=== PATIENT | male | born 1950 | race African-American/Black ===

== ENCOUNTER → 2016-09-05 | Outpatient (CLI) | payer MEDICARE, BC | LOC: RAD 10:38 | PROVIDERS: ATTEND Urology | DX: R31.21 Asymptomatic microscopic hematuria (principal) | CPT/HCPCS: 76770 ==

== ENCOUNTER → 2017-01-22 | Outpatient (CLI) | payer MEDICARE, BC ==
--- NOTE | 2017-01-22 14:20 | RADIOLOGY REPORT (SQ) ---
EXAM DESCRIPTION: CT CHEST WITHOUT COMPLETED DATE/TIME: 01/22/2017 1:01 pm REASON FOR STUDY: J84.10 PULMONARY FIBROSIS J84.10 PULMONARY FIBROSIS, UNSPECIFIED COMPARISON: 03/12/2014 TECHNIQUE: CT scan performed of the chest without intravenous contrast. Images reviewed with lung, soft tissue and bone windows. Reconstructed coronal and sagittal MPR images reviewed. All images st ored on PACS. All CT scanners at this facility use dose modulation, iterative reconstruction, and/or weight based d osing when appropriate to reduce radiation dose to as low as reasonably achievable (ALARA). [facility]: Dose Right [facility]: CareDose [facility]: Dose Right [facility]: Teradose 4D [facility]: Smart [employer] RADIATION DOSE: Up-to-date CT equipment and radiation dose reduction techniques were employed. CTDIv ol: 17.8 mGy. DLP: 613 mGy-cm. mGy. LIMITATIONS: No technical limitations. FINDINGS: LUNGS AND PLEURA: Paraseptal emphysematous changes in the left apex. Stable areas of harsh pheral linear scarring. Bronchiectasis in the lower lobes. No honeycombing. Calcified granuloma ri ght lower lobe. No suspicious nodules. No effusions. HILAR AND MEDIASTINAL STRUCTURES: No identified masses or abnormal nodes. No obvious aneurysm. HEART AND VASCULAR STRUCTURES: No aneurysm. No pericardial effusion. UPPER ABDOMEN: No significant findings. Limited exam. THYROID AND OTHER SOFT TISSUES: No masses. No adenopathy. BONES: No significant finding. HARDWARE: None in the chest. OTHER: No other significant findings. IMPRESSION: Chronic interstitial lung disease and bronchiectasis. No fibrosis. TECHNICAL DOCUMENTATION: JOB ID: [id number] Quality ID # [id number]: Final reports with documentation of one or more dose reduction techniques (e.g., Au tomated exposure control, adjustment of the mA and/or kV according to patient size, use of iterative reconstruction technique) 2010 [employer]- All Rights Reserved
== END ==
LOC: OD 11:51
PROVIDERS: ATTEND Internal Medicine Pulmonary Disease
DX: J84.10 Pulmonary fibrosis, unspecified (principal); D68.0 Von Willebrand disease
CPT/HCPCS: 36415; 71250; 82164; 82310; 82340

== ENCOUNTER 2017-06-08 03:49 | Observation (INO) | payer MEDICARE, BC ==
[2017-06-08] MEDS ORDERED: ASPIRIN 81 MG TABLET, CHEWABLE PO ONE (03:51)
[2017-06-08 04:43] LABS: ABSOLUTE EOSINOPHILS # (AUTO) 0.1 10^3/uL (0.0-0.6); ABSOLUTE LYMPHOCYTES (AUTO) 2.6 10^3/uL (0.5-4.7); ABSOLUTE MONOCYTES (AUTO) 0.3 10^3/uL (0.1-1.4); EOSINOPHILS % (AUTO) 1.6 % (0-6); HEMATOCRIT 44.8 % (37.9-51.0); HEMOGLOBIN 14.9 g/dL (13.5-17.0); HGB HCT DIFFERENCE -0.1; LYMPHOCYTES % (AUTO) 51.7 % (13-45); MEAN CORPUSCULAR HEMOGLOBIN 27.1 pg (27.0-33.4); MEAN CORPUSCULAR HGB CONC 33.2 g/dL (32.0-36.0); MEAN CORPUSCULAR VOLUME 82 fl (80-97); MONOCYTES % (AUTO) 6.7 % (3-13); RED BLOOD COUNT 5.49 10^6/uL (4.35-5.55); RED CELL DISTRIBUTION WIDTH 16.5 % (11.5-14.0); WHITE BLOOD COUNT 5.1 10^3/uL (4.0-10.5)
--- NOTE | 2017-06-08 04:45 | EKG REPORT ---
SEVERITY:- NORMAL ECG - SINUS RHYTHM : Confirmed by: Elliot Worley 08-Jun-2017 04:16:06
[2017-06-08 04:53] LABS: PROTHROMBIN TIME 23.6 SEC (11.4-15.4)
[2017-06-08 04:54] LABS: PARTIAL THROMBOPLASTIN TIME 34.6 SEC (23.5-35.8)
[2017-06-08 05:04] LABS: ALANINE AMINOTRANSFERASE 28 U/L (21-72); ALBUMIN 4.3 g/dL (3.5-5.0); ALKALINE PHOSPHATASE 44 U/L (38-126); ANION GAP 10 (5-19); ASPARTATE AMINO TRANSFERASE 25 U/L (17-59); BILIRUBIN,DIRECT 0.4 mg/dL (0.0-0.4); BILIRUBIN,TOTAL 0.7 mg/dL (0.2-1.3); BLOOD UREA NITROGEN 16 mg/dL (7-20); CALCIUM 9.2 mg/dL (8.4-10.2); CARBON DIOXIDE 33 mmol/L (22-30); CHLORIDE 102 mmol/L (98-107); CREATINE KINASE 138 U/L (55-170); CREATININE RESULT 0.97 mg/dL (0.52-1.25); GLUCOSE 90 mg/dL (75-110); MAGNESIUM 1.9 mg/dL (1.6-2.3); POTASSIUM 3.6 mmol/L (3.6-5.0); SODIUM 144.8 mmol/L (137-145); TOTAL PROTEIN 7.3 g/dL (6.3-8.2)
[2017-06-08 05:15] LABS: CREATINE KINASE MB 2.53 ng/mL (<4.55)
--- NOTE | 2017-06-08 05:16 | RADIOLOGY REPORT (SQ) ---
EXAM DESCRIPTION: CHEST SINGLE VIEW CLINICAL HISTORY: 66 years, Male, chest pain COMPARISON: 03/12/2014. NUMBER OF VIEWS: 1. TECHNIQUE: Frontal LIMITATIONS: None. FINDINGS: Moderate lung volume, small stable atelectasis or scar of the right mid lung field compared with exam from March 2014, normal cardiac silhouette size, and intact bony thorax. IMPRESSION: No acute cardiopulmonary findings. 2011 [employer] [facility] [employer]- All Rights Reserved
[2017-06-08 05:24] LABS: TROPONIN I < 0.012 ng/mL
--- NOTE | 2017-06-08 05:34 | ER Document Report ---
ED General - General Chief Complaint: Chest Pain Stated Complaint: CHEST PAIN Time Seen by Provider: 06/08/17 03:52 TRAVEL OUTSIDE OF THE [place] IN LAST 30 DAYS: No - HPI Patient complains to provider of: Chest pain Notes: Patient coming in with chest pain chest tightness and of the chest woke up from his sleep approximate 45 minutes prior to arrival to the ER. Patient states does have a history of pain like this before patient states he has had a stress test greater than a year ago states otherwise negative no stents no history of [place]. Patient does have a history of hypertension. Patient also has a history of atrial fibrillation and is on Coumadin. Denies any diaphoresis shortness of breath denies any trauma or recent travel. Patient resting comfortably upon my evaluation states chest pain is mostly resolved at this time. - Related Data Allergies/Adverse Reactions: No Known Allergies Allergy (Verified 03/30/16 11:08) Past Medical History - Social History Smoking Status: Never Smoker Chew tobacco use (# tins/day): No Frequency of alcohol use: None Drug Abuse: None Family History: CAD, DM, Hyperlipidemia, Hypertension Patient has suicidal ideation: No Patient has homicidal ideation: No - Past Medical History Cardiac Medical History: Reports: Hx Atrial Fibrillation, Hx Hypercholesterolemia, Hx Hypertension, Hx Peripheral Vascular Disease Pulmonary Medical History: Reports: Hx Asthma Denies: Hx Tuberculosis Renal/ Medical History: Denies: Hx Peritoneal Dialysis GI Medical History: Reports: Hx Gastroesophageal Reflux Disease Musculoskeltal Medical History: Reports Hx Arthritis Past Surgical History: Reports: Hx Vascular Surgery. Denies: Hx Pacemaker - Immunizations Immunizations up to date: Yes Hx Diphtheria, Pertussis, Tetanus Vaccination: Yes Hx Pneumococcal Vaccination: 04/01/11 Review of Systems - Review of Systems Constitutional: No symptoms reported EENT: No symptoms reported Cardiovascular: Chest pain Respiratory: No symptoms reported Gastrointestinal: No symptoms reported Genitourinary: No symptoms reported Male Genitourinary: No symptoms reported Musculoskeletal: No symptoms reported Skin: No symptoms reported Hematologic/Lymphatic: No symptoms reported Neurological/Psychological: No symptoms reported -: Yes All other systems reviewed and negative Physical Exam - Vital signs Vitals: Pulse Ox 98 06/08/17 03:51 Interpretation: Normal - General General appearance: Appears well, Alert - HEENT Head: Normocephalic, Atraumatic Eyes: Normal Pupils: PERRL - Respiratory Respiratory status: No respiratory distress Chest status: Nontender Breath sounds: Normal Chest palpation: Normal - Cardiovascular Rhythm: Regular Heart sounds: Normal auscultation Murmur: No - Abdominal Inspection: Normal Distension: No distension Bowel sounds: Normal Tenderness: Nontender Organomegaly: No organomegaly - Back Back: Normal, Nontender - Extremities General upper extremity: Normal inspection, Nontender, Normal color, Normal ROM , Normal temperature General lower extremity: Normal inspection, Nontender, Normal color, Normal ROM , Normal temperature, Normal weight bearing. No: Aris's sign - Neurological Neuro grossly intact: Yes Cognition: Normal Orientation: AAOx4 [place] Coma Scale Eye Opening: Spontaneous [place] Coma Scale Verbal: Oriented [place] Coma Scale Motor: Obeys Commands [place] Coma Scale Total: 15 Speech: Normal Motor strength normal: LUE, RUE, LLE, RLE Sensory: Normal - Psychological Associated symptoms: Normal affect, Normal mood - Skin Skin Temperature: Warm Skin Moisture: Dry Skin Color: Normal Course - Re-evaluation Re-evalutation: 06/08/17 06:20 EKG troponin negative chest x-ray is also negative. Discussed with PCP will admit the patient for further cardiac evaluation - Vital Signs Vital signs: Temp Pulse Resp BP Pulse Ox 98.3 F 67 20 125/81 96 06/08/17 04:03 06/08/17 04:03 06/08/17 05:01 06/08/17 05:01 06/08/17 05:01 - Laboratory Result Diagrams: 06/08/17 04:34 06/08/17 04:34 Laboratory results interpreted by me: 06/08/17 06/08/17 06/08/17 04:34 04:34 04:34 RDW 16.5 H Seg Neutrophils % 39.0 L Lymphocytes % 51.7 H PT 23.6 H Carbon Dioxide 33 H Discharge - Discharge Clinical Impression: Chest pain, rule out acute myocardial infarction Condition: Good Disposition: ADMITTED OBSERVATION Admitting Provider: Yue Unit Admitted: Telemetry Referrals: CRISTA ORDONEZ MD [Primary Care Provider] - Follow up as needed
--- NOTE | 2017-06-08 16:30 | PDOC H&P ---
History of Present Illness Admission Date/PCP: 06/08/17 05:40 CRISTA ORDONEZ Patient complains of: Chest pain History of Present Illness: ADRI RICHARDSON is a 66 year old male known to my practice who presented to ED with chest pain that started about 45 minutes prior to arrival. Patient reported that he was recently started on CPAP machine for obstructive sleep apnea. he woke up from sleep due to onset of his chest pain. Patient localized pain to left side of his chest without any associated radiation to left upper extremity, palpitation, shortness of breath, nausea or diaphoresis. he has history of Atrial fibrillation and have been compliant with Coumadin therapy. Patient reported compliance with CPAP usage. Spouse reported that she noticed his abdomen have been bigger than usual since he started using the CPAP machine. Patient has history of GERD among his morbidities. His initial evaluation in the ED was remarkable for atrial fibrillation with rapid ventricular rate. He reported recent stress test about 16 months ago that was unrevealing with regard to ischemic issue. His morbidities include chronic atrial fibrillation, Hypertension, Hyperlipidemia, Peripheral Vascular Disease, Obstructive sleep apnea, Asthma, GERD, and Osteoarthritis. He reported significant cardiovascular disease including Hypertension, CAD, DM Type 2, and Hyperlipidemia. Past Medical History Cardiac Medical History: Reports: Atrial Fibrillation, Hyperlipidema, Hypertension, Peripheral Vascular Disease Pulmonary Medical History: Reports: Asthma Denies: Tuberculosis GI Medical History: Reports: Gastroesophageal Reflux Disease Musculoskeltal Medical History: Reports: Arthritis Past Surgical History Past Surgical History: Reports: Vascular Surgery Denies: Pacemaker Social History Smoking Status: Former Smoker Frequency of Alcohol Use: None Hx Recreational Drug Use: No Hx Prescription Drug Abuse: No Family History Family History: CAD, DM, Hyperlipidemia, Hypertension Parental Family History Reviewed: Yes Children Family History Reviewed: Yes Sibling(s) Family History Reviewed.: Yes Medication/Allergy Home Medications: Warfarin Sodium 10 mg PO SUMOTUTHFRSA@99903/12/14 Warfarin Sodium 15 mg PO WE@99903/12/14 Losartan Potassium 50 mg PO DAILY #30 tablet 03/13/14 Metoprolol Tartrate [Lopressor 25 mg Tablet] 25 mg PO Q12 #60 tablet 03/13/14 Duloxetine HCl [Cymbalta 20 Mg Capsule.Dr] 40 mg PO QHS 06/08/17 Hydrochlorothiazide [Hydrodiuril 12.5 mg Capsule] 12.5 mg PO QAM 06/08/17 Pantoprazole Sodium [Protonix] 20 mg PO Q6AM 06/08/17 Allergies/Adverse Reactions: No Known Allergies Allergy (Verified 06/08/17 06:23) Review of Systems Constitutional: ABSENT: chills, fever(s), headache(s), weight gain, weight loss Eyes: ABSENT: visual disturbances Ears: ABSENT: hearing changes Nose, Mouth, and Throat: ABSENT: headache(s), mouth pain, sore throat, vertigo Cardiovascular: PRESENT: chest pain. ABSENT: as per HPI, dyspnea on exertion, edema, orthropnea, palpitations, other Respiratory: ABSENT: cough, hemoptysis Gastrointestinal: ABSENT: abdominal pain, constipation, diarrhea, hematemesis, hematochezia, nausea, vomiting Genitourinary: ABSENT: dysuria, hematuria Musculoskeletal: ABSENT: joint swelling Integumentary: ABSENT: rash, wounds Neurological: ABSENT: abnormal gait, abnormal speech, confusion, dizziness, focal weakness, syncope Psychiatric: ABSENT: anxiety, depression, homidical ideation, suicidal ideation Endocrine: ABSENT: cold intolerance, heat intolerance, menstrual abnormalities, polydipsia, polyuria Hematologic/Lymphatic: ABSENT: easy bleeding, easy bruising, lymphadenopathy Allergic/Immunologic: ABSENT: seasonal rhinorrhea Physical Exam Vital Signs: Temp Pulse Resp BP Pulse Ox 97.7 F 76 18 127/74 H 97 06/08/17 15:51 06/08/17 15:51 06/08/17 15:51 06/08/17 15:51 06/08/17 15:51 Intake & Output 06/07/17 06/08/17 06/09/17 06:59 06:59 06:59 Weight 117.9 kg General appearance: PRESENT: no acute distress, cooperative, obese Head exam: PRESENT: atraumatic, normocephalic Eye exam: PRESENT: conjunctiva pink, EOMI, PERRLA. ABSENT: scleral icterus Ear exam: PRESENT: normal external ear exam Mouth exam: PRESENT: moist, tongue midline Throat exam: ABSENT: post pharyngeal erythema, tonsillar erythema, tonsillar exudate, tonsillogmegaly Neck exam: PRESENT: full ROM. ABSENT: carotid bruit, JVD, lymphadenopathy, thyromegaly Respiratory exam: PRESENT: clear to auscultation jeffery Cardiovascular exam: PRESENT: RRR, +S1, +S2. ABSENT: diastolic murmur, rubs, systolic murmur Pulses: PRESENT: normal dorsalis pedis pul, +2 pedal pulses bilateral Vascular exam: PRESENT: normal capillary refill. ABSENT: pallor GI/Abdominal exam: PRESENT: normal bowel sounds, soft. ABSENT: distended, guarding, mass, organolmegaly, rebound, tenderness Rectal exam: PRESENT: deferred Extremities exam: ABSENT: pedal edema - support Musculoskeletal exam: PRESENT: ambulatory, normal inspection. ABSENT: tenderness Neurological exam: PRESENT: alert, awake, oriented to person, oriented to place , oriented to time, oriented to situation, CN II-XII grossly intact. ABSENT: motor sensory deficit Psychiatric exam: PRESENT: appropriate affect, normal mood. ABSENT: homicidal ideation, suicidal ideation Skin exam: PRESENT: dry, intact, warm. ABSENT: cyanosis, rash Results Laboratory Results: I reviewed hos laboratory results on [employer] and form significant part of my medical decision making. 06/08/17 06/08/17 07:58 14:52 Troponin I 0.032 0.041 Impressions: Chest X-Ray 06/08/17 03:51 IMPRESSION: No acute cardiopulmonary findings. 2010 [employer]- All Rights Reserved Assessment & Plan - Diagnosis (1) Chest pain, rule out acute myocardial infarction Is this a current diagnosis for this admission?: Yes Plan: See attending physician orders. (2) Chronic atrial fibrillation with rapid ventricular response Is this a current diagnosis for this admission?: Yes Plan: See attending physician orders. (3) Obstructive sleep apnea on CPAP Is this a current diagnosis for this admission?: Yes Plan: See attending physician orders. (4) GERD (gastroesophageal reflux disease) Qualifiers: Esophagitis presence: without esophagitis Qualified Code(s): K21.9 - Gastro -esophageal reflux disease without esophagitis Is this a current diagnosis for this admission?: Yes Plan: See attending physician orders. (5) HTN (hypertension) Qualifiers: Hypertension type: essential hypertension Qualified Code(s): I10 - Essential (primary) hypertension Is this a current diagnosis for this admission?: Yes Plan: See attending physician orders. (6) HLD (hyperlipidemia) Qualifiers: Hyperlipidemia type: pure hypercholesterolemia Qualified Code(s): E78.00 - Pure hypercholesterolemia, unspecified; E78.0 - Pure hypercholesterolemia Is this a current diagnosis for this admission?: Yes Plan: See attending physician orders. (7) DVT (deep venous thrombosis) Qualifiers: DVT location: lower extremity Chronicity: chronic Laterality: unspecified laterality Is this a current diagnosis for this admission?: Yes Plan: See attending physician orders. - Time Time Spent: 50 to 70 Minutes Medications reviewed and adjusted accordingly: Yes Anticipated discharge: Home Within: within 24 hours - Plan Summary Plan Summary: See attending physician orders.
[2017-06-08] MEDS ORDERED: NORMAL SALINE 1000 ML 1,000 ML IV PRN (16:31)
[2017-06-08 17:23] LABS: PROTHROMBIN TIME 24.2 SEC (11.4-15.4)
[2017-06-08] MEDS ORDERED: LANSOPRAZOLE 30 MG TAB.RAP.DR PO ONE (17:30)
[2017-06-08] MEDS ORDERED: WARFARIN SODIUM 5 MG TABLET PO SCH (22:00)
[2017-06-08] MEDS ORDERED: DULOXETINE HCL 20 MG CAPSULE.DR PO SCH (22:00)
[2017-06-08] MEDS: METOPROLOL TARTRATE 25 MG TABLET PO SCH (22:21)
[2017-06-09 05:31] LABS: ABSOLUTE BASOPHILS # (AUTO) 0.1 10^3/uL (0.0-0.2); ABSOLUTE EOSINOPHILS # (AUTO) 0.1 10^3/uL (0.0-0.6); ABSOLUTE LYMPHOCYTES (AUTO) 2.3 10^3/uL (0.5-4.7); ABSOLUTE MONOCYTES (AUTO) 0.3 10^3/uL (0.1-1.4); ABSOLUTE NEUT (AUTO) 1.8 10^3/uL (1.7-8.2); BASOPHILS % (AUTO) 1.3 % (0-2); EOSINOPHILS % (AUTO) 2.6 % (0-6); HEMATOCRIT 42.6 % (37.9-51.0); HEMOGLOBIN 14.4 g/dL (13.5-17.0); HGB HCT DIFFERENCE 0.6; LYMPHOCYTES % (AUTO) 49.8 % (13-45); MEAN CORPUSCULAR HEMOGLOBIN 27.7 pg (27.0-33.4); MEAN CORPUSCULAR HGB CONC 33.9 g/dL (32.0-36.0); MEAN CORPUSCULAR VOLUME 82 fl (80-97); MONOCYTES % (AUTO) 7.1 % (3-13); RED BLOOD COUNT 5.21 10^6/uL (4.35-5.55); RED CELL DISTRIBUTION WIDTH 16.6 % (11.5-14.0); SEGMENTED NEUTROPHILS % (AUTO) 39.2 % (42-78); WHITE BLOOD COUNT 4.5 10^3/uL (4.0-10.5)
[2017-06-09 05:36] LABS: PROTHROMBIN TIME 24.6 SEC (11.4-15.4)
[2017-06-09 05:54] LABS: ANION GAP 7 (5-19); BLOOD UREA NITROGEN 13 mg/dL (7-20); CALCIUM 8.9 mg/dL (8.4-10.2); CARBON DIOXIDE 30 mmol/L (22-30); CHLORIDE 104 mmol/L (98-107); CREATINE KINASE 111 U/L (55-170); CREATININE RESULT 0.78 mg/dL (0.52-1.25); GLUCOSE 92 mg/dL (75-110); SODIUM 141.4 mmol/L (137-145)
[2017-06-09] MEDS ORDERED: LANSOPRAZOLE 30 MG TAB.RAP.DR PO SCH (06:00)
[2017-06-09 06:04] LABS: CREATINE KINASE MB 1.72 ng/mL (<4.55)
[2017-06-09 06:05] LABS: TROPONIN I < 0.012 ng/mL
--- NOTE | 2017-06-09 07:58 | EKG REPORT ---
SEVERITY:- NORMAL ECG - SINUS RHYTHM : Confirmed by: Elliot Worley 09-Jun-2017 07:57:26
[2017-06-09] MEDS ORDERED: HYDROCHLOROTHIAZIDE 12.5 MG CAPSULE PO SCH (08:00)
[2017-06-09 08:21] VITALS: BP 134/76
[2017-06-09] MEDS: METOPROLOL TARTRATE 25 MG TABLET PO SCH (09:12)
[2017-06-09] MEDS ORDERED: WARFARIN SODIUM 10 MG PO SCH (10:00)
[2017-06-09] MEDS ORDERED: LOSARTAN POTASSIUM 50 MG TABLET PO SCH (10:00)
[2017-06-09] MEDS ORDERED: (PENDING PHARMACY ID) (Losartan Potassium [Losartan Potassium] 50 MG) PO SCH (10:00)
--- NOTE | 2017-06-09 10:59 | PDOC DISCHARGE SUMMARY ---
General - Admit/Disc Date/PCP Admission Date/Primary Care Provider: 06/08/17 05:40 CRISTA MERY Discharge Date: 06/09/17 - Discharge Diagnosis (1) Chest pain, rule out acute myocardial infarction Is this a current diagnosis for this admission?: Yes (2) Chronic atrial fibrillation with rapid ventricular response Is this a current diagnosis for this admission?: Yes (3) Obstructive sleep apnea on CPAP Is this a current diagnosis for this admission?: Yes (4) GERD (gastroesophageal reflux disease) Is this a current diagnosis for this admission?: Yes (5) HTN (hypertension) Is this a current diagnosis for this admission?: Yes (6) HLD (hyperlipidemia) Is this a current diagnosis for this admission?: Yes (7) DVT (deep venous thrombosis) Is this a current diagnosis for this admission?: Yes - Additional Information Home Medications: Warfarin Sodium 10 mg PO SUMOTUTHFRSA@99903/12/14 Warfarin Sodium 15 mg PO WE@99903/12/14 Losartan Potassium 50 mg PO DAILY #30 tablet 03/13/14 Metoprolol Tartrate [Lopressor 25 mg Tablet] 25 mg PO Q12 #60 tablet 03/13/14 Duloxetine HCl [Cymbalta 20 Mg Capsule.Dr] 40 mg PO QHS 06/08/17 Hydrochlorothiazide [Hydrodiuril 12.5 mg Capsule] 12.5 mg PO QAM 06/08/17 Pantoprazole Sodium [Protonix] 20 mg PO Q6AM 06/08/17 History of Present Illness History of Present Illness: ADRI RICHARDSON is a 66 year old male known to my practice who presented to ED with chest pain that started about 45 minutes prior to arrival. Patient reported that he was recently started on CPAP machine for obstructive sleep apnea. he woke up from sleep due to onset of his chest pain. Patient localized pain to left side of his chest without any associated radiation to left upper extremity, palpitation, shortness of breath, nausea or diaphoresis. he has history of Atrial fibrillation and have been compliant with Coumadin therapy. Patient reported compliance with CPAP usage. Spouse reported that she noticed his abdomen have been bigger than usual since he started using the CPAP machine. Patient has history of GERD among his morbidities. His initial evaluation in the ED was remarkable for atrial fibrillation with rapid ventricular rate. He reported recent stress test about 16 months ago that was unrevealing with regard to ischemic issue. His morbidities include chronic atrial fibrillation, Hypertension, Hyperlipidemia, Peripheral Vascular Disease, Obstructive sleep apnea, Asthma, GERD, and Osteoarthritis. He reported significant cardiovascular disease including Hypertension, CAD, DM Type 2, and Hyperlipidemia. Hospital Course Hospital Course: Patient chest pain resolved without any significant management intervention beyond administration of Aspirin and supplemental oxygen. His cardiac enzymes were within normal limits. He denied any chest pain or difficulty with breathing this morning. Patient was instructed to use CPAP machine mask appropriately and postural adjustment to reduce reflux recurrence. Physical Exam Vital Signs: Temp Pulse Resp BP Pulse Ox 98.6 F 73 16 134/76 H 96 06/09/17 08:00 06/09/17 08:00 06/09/17 08:00 06/09/17 08:00 06/09/17 08:00 Intake & Output 06/08/17 06/09/17 06/10/17 06:59 06:59 06:59 Intake Total 1708 Balance 1708 Weight 117.9 kg General appearance: PRESENT: no acute distress, obese Head exam: PRESENT: atraumatic, normocephalic Eye exam: PRESENT: conjunctiva pink, EOMI, PERRLA. ABSENT: scleral icterus Mouth exam: PRESENT: moist Respiratory exam: PRESENT: clear to auscultation jeffery Cardiovascular exam: PRESENT: RRR. ABSENT: diastolic murmur, rubs, systolic murmur GI/Abdominal exam: PRESENT: normal bowel sounds, soft. ABSENT: distended, guarding, mass, organolmegaly, rebound, tenderness Extremities exam: ABSENT: pedal edema Musculoskeletal exam: PRESENT: normal inspection Neurological exam: PRESENT: alert, awake, oriented to person, oriented to place , oriented to time, oriented to situation, CN II-XII grossly intact. ABSENT: motor sensory deficit Psychiatric exam: PRESENT: appropriate affect, normal mood. ABSENT: homicidal ideation, suicidal ideation Skin exam: PRESENT: dry, intact, warm. ABSENT: cyanosis, rash Results Laboratory Results: 06/09/17 05:10 06/09/17 05:10 06/09/17 06/09/17 05:10 05:10 WBC 4.5 RBC 5.21 Hgb 14.4 Hct 42.6 MCV 82 MCH 27.7 MCHC 33.9 RDW 16.6 H Plt Count 154 Seg Neutrophils % 39.2 L Lymphocytes % 49.8 H Monocytes % 7.1 Eosinophils % 2.6 Basophils % 1.3 Absolute Neutrophils 1.8 Absolute Lymphocytes 2.3 Absolute Monocytes 0.3 Absolute Eosinophils 0.1 Absolute Basophils 0.1 Sodium 141.4 Potassium 4.0 Chloride 104 Carbon Dioxide 30 Anion Gap 7 BUN 13 Creatinine 0.78 Est GFR ( Amer) > 60 Est GFR (Non-Af Amer) > 60 Glucose 92 Calcium 8.9 06/08/17 06/08/17 06/09/17 07:58 14:52 05:10 Creatine Kinase 111 CK-MB (CK-2) Troponin I 0.032 0.041 06/09/17 05:10 Creatine Kinase CK-MB (CK-2) 1.72 Troponin I < 0.012 Impressions: Chest X-Ray 06/08/17 03:51 IMPRESSION: No acute cardiopulmonary findings. 2010 [email or web address]- All Rights Reserved Qualifiers PATEINT BEING DISCHARGED WITH ANY OF THE FOLLOWING DIAGNOSIS?: No Plan Discharge Plan: Discharge home today. Keep prior office appointment for followup on 07/24/2017 at 11am.
[2017-06-13] MEDS ORDERED: WARFARIN SODIUM 15 MG PO SCH (10:00)
[2017-06-13] MEDS ORDERED: WARFARIN SODIUM 7.5 MG TABLET PO SCH (22:00)
== END 2017-06-09 12:10 | disposition home or self-care (01) ==
LOC: ER 03:49 → EH 05:40 → 4N 12:04
PROVIDERS: ADMIT Internal Medicine Geriatric Medicine; ATTEND Internal Medicine Geriatric Medicine
DX: R07.89 Other chest pain (principal); I48.2 Chronic atrial fibrillation; G47.33 Obstructive sleep apnea (adult) (pediatric); K21.9 Gastro-esophageal reflux disease without esophagitis; I10 Essential (primary) hypertension; E78.00 Pure hypercholesterolemia, unspecified; I82.509 Chronic embolism and thrombosis of unspecified deep veins of unspecified lower extremity; I25.10 Atherosclerotic heart disease of native coronary artery without angina pectoris; E11.51 Type 2 diabetes mellitus with diabetic peripheral angiopathy without gangrene; M19.90 Unspecified osteoarthritis, unspecified site; Z79.899 Other long term (current) drug therapy; Z79.01 Long term (current) use of anticoagulants; Z87.891 Personal history of nicotine dependence; Z82.49 Family history of ischemic heart disease and other diseases of the circulatory system
CPT/HCPCS: 93005 ×2; 99285; 36415 ×2; 82553 ×2; 82550 ×2; 83735; 85025 ×2; 85610 ×2; 85730; 80048; 80053; 84484 ×2; 71010; 93010 ×2; A9270 ×8; J7030; J3490

== ENCOUNTER → 2017-08-03 | Outpatient (CLI) | payer MEDICARE, BC ==
[2017-08-03 14:10] LABS: HEMATOCRIT 44.4 % (37.9-51.0); HEMOGLOBIN 14.8 g/dL (13.5-17.0); MEAN CORPUSCULAR HEMOGLOBIN 27.4 pg (27.0-33.4); MEAN CORPUSCULAR HGB CONC 33.3 g/dL (32.0-36.0); MEAN CORPUSCULAR VOLUME 82 fl (80-97); PLATELET COUNT 187 10^3/uL (150-450); RED CELL DISTRIBUTION WIDTH 16.2 % (11.5-14.0); WHITE BLOOD COUNT 5.4 10^3/uL (4.0-10.5)
[2017-08-03 14:27] LABS: ALANINE AMINOTRANSFERASE 25 U/L (21-72); ALBUMIN 4.8 g/dL (3.5-5.0); ALKALINE PHOSPHATASE 45 U/L (38-126); AMYLASE 93 U/L (30-110); ANION GAP 10 (5-19); ASPARTATE AMINO TRANSFERASE 22 U/L (17-59); BILIRUBIN,DIRECT 0.1 mg/dL (0.0-0.4); BILIRUBIN,TOTAL 0.5 mg/dL (0.2-1.3); BLOOD UREA NITROGEN 12 mg/dL (7-20); CALCIUM 9.6 mg/dL (8.4-10.2); CARBON DIOXIDE 32 mmol/L (22-30); CHLORIDE 103 mmol/L (98-107); GLUCOSE 80 mg/dL (75-110); LIPASE 125.9 U/L (23-300); POTASSIUM 4.4 mmol/L (3.6-5.0); SODIUM 145.3 mmol/L (137-145); TOTAL PROTEIN 7.5 g/dL (6.3-8.2)
== END ==
LOC: OD 13:17
PROVIDERS: ATTEND Physician Assistant Surgical
DX: R10.816 Epigastric abdominal tenderness (principal); R11.0 Nausea
CPT/HCPCS: 36415; 80053; 82150; 83690; 85027

== ENCOUNTER → 2017-09-03 | Outpatient (CLI) | payer MEDICARE, BC ==
--- NOTE | 2017-09-03 09:32 | RADIOLOGY REPORT (SQ) ---
EXAM DESCRIPTION: U/S ABDOMEN COMPLETE W/O DOP COMPLETED DATE/TIME: 09/03/2017 8:30 am REASON FOR STUDY: EPIGASTRIC PAIN (R10.13) R10.13 EPIGASTRIC PAIN R07.9 CHEST PAIN, UNSPECIFIED K4 4.9 DIAPHRAGMATIC HERNIA WITHOUT OBSTRUCTION OR GANGRENE COMPARISON: None. TECHNIQUE: Dynamic and static grayscale images acquired of the abdomen and recorded on PACS. Additio nal selected color Doppler and spectral images recorded. LIMITATIONS: Study limited due to acoustical interference from fat or from air in the bowel. FINDINGS: PANCREAS: Obscured. LIVER: Echotexture is coarse with increased echogenicity consistent with fatty infiltration. LIVER VASCULATURE: Normal directional flow of the main portal vein and hepatic veins. GALLBLADDER: No stones. Normal wall thickness. No pericholecystic fluid. ULTRASOUND-DETECTED HIGGINS'S SIGN: Negative. INTRAHEPATIC DUCTS AND COMMON DUCT: CBD and intrahepatic ducts normal caliber. No filling defects. INFERIOR VENA CAVA: Normal flow. AORTA: No aneurysm. RIGHT KIDNEY: Normal size. Normal echogenicity. No solid or suspicious masses. No hydronephros is. No calcifications. LEFT KIDNEY: Normal size. Normal echogenicity. No solid or suspicious masses. No hydronephrosi s. No calcifications. SPLEEN:Normal size. No solid masses. PERITONEAL AND PLEURAL SPACES: No ascites or effusions. OTHER: No other significant finding. IMPRESSION: Fatty liver. No acute findings. TECHNICAL DOCUMENTATION: JOB ID: [id number] [employer]- All Rights Reserved Reading location - IP/workstation name: [email or web address]
--- NOTE | 2017-09-03 12:41 | RADIOLOGY REPORT (SQ) ---
EXAM DESCRIPTION: UGI SERIES COMPLETED DATE/TIME: 09/03/2017 9:06 am REASON FOR STUDY: EPIGATRIC PAIN (R10.13), CHEST PAIN (R07.9), DIAGHRAGMATIC HERNIA (K44.9) R10.13 EPIGASTRIC PAIN R07.9 CHEST PAIN, UNSPECIFIED K44.9 DIAPHRAGMATIC HERNIA WITHOUT OBSTRUCTION OR LAMONT GRENE COMPARISON: CT LIMITED ABDOMEN 03/23/2016 TECHNIQUE: Under fluoroscopic guidance, patient ingested effervescent granules followed by thick and thin barium. Fluoroscopic spot images and routine radiographic images acquired and stored on PACS. 12 MM BARIUM TABLET GIVEN: Yes. No significant delay in passage. LIMITATIONS: None. FLUOROSCOPY TIME: FLUORO TIME: 0.7 minutes 12 fluoroscopy images saved to PACS. FINDINGS: NEUROMUSCULAR COORDINATION OF SWALLOW: Normal. No aspiration. ESOPHAGEAL MOTILITY: Normal primary peristalsis. Mild tertiary contractions noted throughout the mid and distal esophagus suggesting mild esophageal dysmotility. No delay in passage of tablet. No eso phageal spasm. ESOPHAGEAL MUCOSA: Normal mucosa without masses or ulceration. GASTRO-ESOPHAGEAL JUNCTION: No hiatal hernia or reflux. STOMACH: A mildly large stomach is identified with the fundus of the stomach positioned horizontally under the left hemidiaphragm. No volvulus, hiatal hernia, or obstruction is seen. The mucosa is nor mal without masses or ulcerations. GASTRIC OUTLET: No delay in emptying. Normal pylorus. DUODENAL BULB: Normal distention. No spasm or ulceration. DUODENUM: Mucosa normal. No extrinsic masses or malrotation. PROXIMAL SMALL BOWEL: Mucosa normal. No extrinsic masses or malrotation. NON-GI TRACT STRUCTURES: No significant finding. OTHER: No other significant finding. IMPRESSION: 1. MILD ESOPHAGEAL DYSMOTILITY. NO DELAY PASSING A BARIUM TABLET. 2. MILDLY LARGE STOMACH WITH THE FUNDUS POSITIONED HORIZONTALLY UNDER THE LEFT HEMIDIAPHRAGM. NO VO LVULUS, HIATAL HERNIA, OBSTRUCTION, OR MUCOSAL DEFECTS. COMMENT: Quality ID [id number]: Final reports for procedures using fluoroscopy that document radiation exp osure indices, or exposure time and number of fluorographic images (if radiation exposure indices are not available) TECHNICAL DOCUMENTATION: JOB ID: [id number] [employer]- All Rights Reserved Reading location - IP/workstation name: [email or web address]
== END ==
LOC: RAD 07:38
PROVIDERS: ATTEND Internal Medicine Gastroenterology
DX: R10.13 Epigastric pain (principal); R07.9 Chest pain, unspecified; K44.9 Diaphragmatic hernia without obstruction or gangrene
CPT/HCPCS: 74247; 76700

== ENCOUNTER → 2017-11-06 | Outpatient (CLI) | payer MEDICARE, BC ==
--- NOTE | 2017-11-06 19:38 | XCELERA REPORT ---
[address] [address] Lower Extremity Venous Evaluation Name: ADRI RICHARDSON Age: 67 yrs Gender: Male : 1950 Patient Status: Outpatient Patient Location: Study Date: 11/06/2017 03:55 PM Procedure: Color flow and duplex imaging of the veins of the right lower extremity as well as the left Common Femoral vein. Reason For Study: RLE PAIN Ordering Physician: CRISTA ORDONEZ Performed By: Nereida Mina Right Sided Venous Evaluation Enlarged and no flow in upper thigh Greater Saphenous vein. Reflux present in the deep veins. Otherwise normal vessel filling wall to wall, compression and augmentation as well as Colour flow down to the infrageniculate veins. Left Sided Venous Evaluation The left common femoral vein is fully compressible. Spontaneous and phasic flow is present in the left common femoral vein. Interpretation Summary No duplex evidence of DVT or obstruction in the right lower extremity nor in the left Common Femoral vein. Superficial phlebitis in the Greater Saphenous vein. The patient is noted to be on Warfarin. : CRISTA ORDONEZ > Boone Dixon
== END ==
LOC: SP 15:36
PROVIDERS: ATTEND Internal Medicine Geriatric Medicine
DX: M79.604 Pain in right leg (principal)
CPT/HCPCS: 93971

== ENCOUNTER → 2018-01-30 | Outpatient (CLI) | payer MEDICARE, BC ==
[2018-01-30 17:22] LABS: ALANINE AMINOTRANSFERASE 20 U/L (21-72); ALBUMIN 4.3 g/dL (3.5-5.0); ALKALINE PHOSPHATASE 41 U/L (38-126); ANION GAP 9 (5-19); ASPARTATE AMINO TRANSFERASE 23 U/L (17-59); BILIRUBIN,DIRECT 0.3 mg/dL (0.0-0.4); BILIRUBIN,TOTAL 0.5 mg/dL (0.2-1.3); BLOOD UREA NITROGEN 19 mg/dL (7-20); CALCIUM 9.6 mg/dL (8.4-10.2); CARBON DIOXIDE 37 mmol/L (22-30); CHLORIDE 102 mmol/L (98-107); GLUCOSE 94 mg/dL (75-110); POTASSIUM 4.9 mmol/L (3.6-5.0); SODIUM 147.5 mmol/L (137-145); TOTAL PROTEIN 7.6 g/dL (6.3-8.2)
== END ==
LOC: OD 16:02
PROVIDERS: ATTEND Internal Medicine Geriatric Medicine
DX: I10 Essential (primary) hypertension (principal)
CPT/HCPCS: 36415; 80053

== ENCOUNTER → 2018-02-28 | Outpatient (CLI) | payer MEDICARE, BC | LOC: OD 11:11 | PROVIDERS: ATTEND Physician Assistant | DX: D86.0 Sarcoidosis of lung (principal) | CPT/HCPCS: 36415; 82164; 82306; 82310; 82340 ==

== ENCOUNTER → 2018-03-11 | Outpatient (CLI) | payer MEDICARE, BC ==
--- NOTE | 2018-03-11 10:46 | RADIOLOGY REPORT (SQ) ---
EXAM DESCRIPTION: CT CHEST WITHOUT COMPLETED DATE/TIME: 03/11/2018 9:00 am REASON FOR STUDY: BRONCHIESCTASIS J47.9 BRONCHIECTASIS, UNCOMPLICATED D86.0 SARCOIDOSIS OF LUNG COMPARISON: 01/22/2017 TECHNIQUE: CT scan performed of the chest without intravenous contrast. Images reviewed with lung, soft tissue and bone windows. Reconstructed coronal and sagittal MPR images reviewed. All images st ored on PACS. All CT scanners at this facility use dose modulation, iterative reconstruction, and/or weight based d osing when appropriate to reduce radiation dose to as low as reasonably achievable (ALARA). [facility]: Dose Right [facility]: CareDose [facility]: Dose Right [facility]: Teradose 4D [facility]: Smart Technologies RADIATION DOSE: CT Rad equipment meets quality standard of care and radiation dose reduction techniq ues were employed. CTDIvol: 18.5 mGy. DLP: 645 mGy-cm. mGy. LIMITATIONS: No technical limitations. FINDINGS: LUNGS AND PLEURA: Stable peripheral areas of bandlike scarring and associated bronchiectas is. No developing nodules or effusions. No honeycombing. Calcified granuloma right lower lobe. HILAR AND MEDIASTINAL STRUCTURES: No identified masses or abnormal nodes. No obvious aneurysm. HEART AND VASCULAR STRUCTURES: No aneurysm. No pericardial effusion. UPPER ABDOMEN: No significant findings. Limited exam. THYROID AND OTHER SOFT TISSUES: No masses. No adenopathy. BONES: No significant finding. HARDWARE: None in the chest. OTHER: No other significant findings. IMPRESSION: Chronic interstitial lung disease and associated bronchiectasis. No significant change. TECHNICAL DOCUMENTATION: JOB ID: [id number] Quality ID # [id number]: Final reports with documentation of one or more dose reduction techniques (e.g., Au tomated exposure control, adjustment of the mA and/or kV according to patient size, use of iterative reconstruction technique) 2010 [employer]- All Rights Reserved Reading location - IP/workstation name: [email or web address]
== END ==
LOC: RAD 09:07
PROVIDERS: ATTEND Physician Assistant
DX: J47.9 Bronchiectasis, uncomplicated (principal); D86.0 Sarcoidosis of lung
CPT/HCPCS: 71250

== ENCOUNTER 2018-04-06 19:57 | Emergency (ER) | payer MEDICARE, BC ==
[2018-04-06 20:44] LABS: ABSOLUTE BASOPHILS # (AUTO) 0.1 10^3/uL (0.0-0.2); ABSOLUTE EOSINOPHILS # (AUTO) 0.1 10^3/uL (0.0-0.6); ABSOLUTE LYMPHOCYTES (AUTO) 2.8 10^3/uL (0.5-4.7); ABSOLUTE MONOCYTES (AUTO) 0.4 10^3/uL (0.1-1.4); ABSOLUTE NEUT (AUTO) 3.1 10^3/uL (1.7-8.2); BASOPHILS % (AUTO) 0.9 % (0-2); EOSINOPHILS % (AUTO) 1.6 % (0-6); HEMOGLOBIN 15.1 g/dL (13.5-17.0); LYMPHOCYTES % (AUTO) 43.2 % (13-45); MEAN CORPUSCULAR HGB CONC 34.3 g/dL (32.0-36.0); MEAN CORPUSCULAR VOLUME 82 fl (80-97); MONOCYTES % (AUTO) 6.2 % (3-13); PLATELET COUNT 195 10^3/uL (150-450); RED BLOOD COUNT 5.39 10^6/uL (4.35-5.55); RED CELL DISTRIBUTION WIDTH 16.6 % (11.5-14.0); SEGMENTED NEUTROPHILS % (AUTO) 48.1 % (42-78); TOTAL CELLS COUNTED % (AUTO) 100 %; WHITE BLOOD COUNT 6.4 10^3/uL (4.0-10.5)
--- NOTE | 2018-04-06 20:57 | RADIOLOGY REPORT (SQ) ---
EXAM DESCRIPTION: CHEST SINGLE VIEW COMPLETED DATE/TIME: 04/06/2018 8:28 pm REASON FOR STUDY: cp Chest pain starting 1 hour ago COMPARISON: None. EXAM PARAMETERS: NUMBER OF VIEWS: One view. TECHNIQUE: Single frontal radiographic view of the chest acquired. RADIATION DOSE: NA LIMITATIONS: None. FINDINGS: LUNGS AND PLEURA: Minimal bandlike scarring in the periphery of the right upper lobe and a t both lateral costophrenic sulci. No acute infiltrates. No pleural effusion or pneumothorax. MEDIASTINUM AND HILAR STRUCTURES: No masses. Contour normal. HEART AND VASCULAR STRUCTURES: Heart normal in size. Normal vasculature. BONES: No acute findings. HARDWARE: None in the chest. OTHER: No other significant finding. IMPRESSION: No acute changes. Minimal stable bandlike scarring in the periphery of the right upper lobe and both lateral lung bases . TECHNICAL DOCUMENTATION: JOB ID: [id number] [employer]- All Rights Reserved Reading location - IP/workstation name: [email or web address]
[2018-04-06] MEDS ORDERED: METOPROLOL TARTRATE PF/INJ 5 MG/5 ML SDV IV ONE (21:07)
--- NOTE | 2018-04-06 21:09 | ER Document Report ---
ED General - General Chief Complaint: Palpitations Stated Complaint: CHEST TIGHTNESS Time Seen by Provider: 04/06/18 20:11 Notes: Patient is a 67-year-old male approximately 2 hours of palpitations. Patient states that he was out and about today, did not take any of his medication including his metoprolol today as directed. He states proximate 2 hours prior to arrival he began to feel a fluttering in his chest. He denies any distinct chest pain or heaviness, states that sometimes the palpitations will get to a point where he felt there was a tightness in the chest but currently denies any sensation other than palpitations. Denies any associated lightheadedness, syncope or shortness of breath. He states this feels very similar to when his atrial fibrillation has gotten fast in the past. He has not contacted his general doctor regarding today's concerns. He has no known history of coronary artery disease, prior NC, DVT or pulmonary embolus. Nothing is been noted to improve or worsen his symptoms since onset. TRAVEL OUTSIDE OF THE [place] IN LAST 30 DAYS: No - Related Data Allergies/Adverse Reactions: No Known Allergies Allergy (Verified 06/08/17 06:23) Past Medical History - General Information source: Patient - Social History Smoking Status: Never Smoker Chew tobacco use (# tins/day): No Frequency of alcohol use: None Drug Abuse: None Lives with: Spouse/Significant other Family History: CAD, DM, Hyperlipidemia, Hypertension Patient has suicidal ideation: No Patient has homicidal ideation: No - Past Medical History Cardiac Medical History: Reports: Hx Atrial Fibrillation, Hx Hypercholesterolemia, Hx Hypertension, Hx Peripheral Vascular Disease Pulmonary Medical History: Reports: Hx Asthma Denies: Hx Tuberculosis Renal/ Medical History: Denies: Hx Peritoneal Dialysis GI Medical History: Reports: Hx Gastroesophageal Reflux Disease Musculoskeletal Medical History: Reports Hx Arthritis Past Surgical History: Reports: Hx Vascular Surgery. Denies: Hx Pacemaker - Immunizations Immunizations up to date: Yes Hx Diphtheria, Pertussis, Tetanus Vaccination: Yes Hx Pneumococcal Vaccination: 04/01/11 Review of Systems - Review of Systems Notes: Constitutional: Negative for fever. HENT: Negative for sore throat. Eyes: Negative for visual changes. Cardiovascular: Positive for palpitations, negative for chest pain Respiratory: Negative for shortness of breath. Gastrointestinal: Negative for abdominal pain, vomiting or diarrhea. Genitourinary: Negative for dysuria. Musculoskeletal: Negative for back pain. Skin: Negative for rash. Neurological: Negative for headaches, weakness or numbness. 10 point ROS negative except as marked above and in HPI. Physical Exam - Vital signs Vitals: Temp Pulse Resp BP Pulse Ox 98.9 F 66 22 H 134/81 H 97 04/06/18 20:07 04/06/18 20:07 04/06/18 20:07 04/06/18 20:07 04/06/18 20:07 Interpretation: Tachycardic - Initial document heart rate of 66 is not accurate Notes: PHYSICAL EXAMINATION: GENERAL: Well-appearing, well-nourished and in no acute distress. HEAD: Atraumatic, normocephalic. EYES: Pupils equal round and reactive to light, extraocular movements intact, sclera anicteric, conjunctiva are normal. ENT: nares patent, oropharynx clear without exudates. Moist mucous membranes. NECK: Normal range of motion, supple without lymphadenopathy LUNGS: Breath sounds clear to auscultation bilaterally and equal. No wheezes rales or rhonchi. HEART: Irregular regular tachycardia without murmurs ABDOMEN: Soft, nontender, normoactive bowel sounds. No guarding, no rebound. No masses appreciated. EXTREMITIES: Normal range of motion, no pitting or edema. No cyanosis. NEUROLOGICAL: No focal neurological deficits. Moves all extremities spontaneously and on command. PSYCH: Normal mood, normal affect. SKIN: Warm, Dry, normal turgor, no rashes or lesions noted. Course - Re-evaluation Re-evalutation: 04/06/18 21:08 Patient is a 67-year-old male with a past medical history of atrial fibrillation who presents with A. bruce with rapid ventricular response. His main complaint is palpitations. He denies any chest pain contrary to triage assessment he states it is not a true tightness but more of a sensation of his heart going quickly. Patient did not take any of his medications today, likely the trigger for him going into atrial fibrillation with rapid ventricular response. Will give IV metoprolol 5 mg every 5 minutes as this is the patient' s normal home medications and then given oral dose of metoprolol. If I can achieve rate control plan for discharge home otherwise patient will require hospitalization. EKG without ischemic changes. Troponin and the remainder of blood work is pending. 04/06/18 22:48 Labs completely unremarkable. Patient's heart rate has normalized currently 94 after receiving metoprolol (Please note that the last recorded heart rate is from the monitor which in the setting of atrial fibrillation does not take an average of the heart rate, I did do a manual count at the bedside and it was 94/ 1 minute). I have again strongly emphasized the patient the need to take all of his medications exactly as prescribed, have reviewed the risk of beta-sofia withdrawal with the patient. He continues to be without any symptoms at this point, states he feels very well and would like to be discharged home. At this time will discharge with return precautions and follow-up recommendations. Verbal discharge instructions given a the bedside and opportunity for questions given. Medication warnings reviewed. Patient is in agreement with this plan and has verbalized understanding of return precautions and the need for primary care follow-up in the next 24-72 hours. - Vital Signs Vital signs: Temp Pulse Resp BP Pulse Ox 98.4 F 66 19 117/89 H 94 04/06/18 23:02 04/06/18 20:07 04/06/18 22:28 04/06/18 22:28 04/06/18 22:28 - Laboratory Result Diagrams: 04/06/18 20:35 04/06/18 21:15 Laboratory results interpreted by me: 04/06/18 20:35 RDW 16.6 H - Diagnostic Test Radiology reviewed: Image reviewed, Reports reviewed Radiology results interpreted by me: 04/06/18 21:09 Chest x-ray: No acute infiltrate or pneumothorax - EKG Interpretation by Me Additional EKG results interpreted by me: 04/06/18 21:09 Atrial fibrillation with rapid ventricular response. No ST elevations or depressions. QTC is 463. Discharge - Discharge Clinical Impression: Atrial fibrillation with rapid ventricular response, Palpitations Condition: Good Disposition: HOME, SELF-CARE Additional Instructions: Please take all medications exactly as directed. You were seen today because your A. fib was going too quickly. Your labs and chest x-ray are normal today. Your heart rate has responded well to the medications here in the emergency department and you are safe for discharge home. Please return to the emergency department immediately if you develop chest pain, shortness of breath, recurrence of palpitations, pass out, or have any other symptoms that are worrisome to you. Referrals: CRISTA ORDONEZ MD [Primary Care Provider] - Follow up as needed
[2018-04-06] MEDS: METOPROLOL TARTRATE 25 MG TABLET PO ONE ×2 (21:40→21:45)
[2018-04-06] MEDS ORDERED: METOPROLOL TARTRATE 50 MG TABLET PO ONE (21:41)
[2018-04-06] MEDS ORDERED: METOPROLOL TARTRATE 25 MG TABLET ONE (21:42)
[2018-04-06 22:03] LABS: ANION GAP 8 (5-19); BLOOD UREA NITROGEN 19 mg/dL (7-20); CALCIUM 9.4 mg/dL (8.4-10.2); CARBON DIOXIDE 30 mmol/L (22-30); CHLORIDE 104 mmol/L (98-107); GLUCOSE 105 mg/dL (75-110); POTASSIUM 3.7 mmol/L (3.6-5.0); SODIUM 141.7 mmol/L (137-145)
[2018-04-06 22:20] LABS: FREE T4 (FREE THYROXINE) 1.15 ng/dL (0.78-2.19)
[2018-04-06 22:34] LABS: THYROID STIMULATING HORMONE 2.91 uIU/mL (0.47-4.68)
[2018-04-06 22:56] VITALS: BP 117/89
--- NOTE | 2018-04-07 19:15 | EKG REPORT ---
SEVERITY:- ABNORMAL ECG - A FIB WITH RVR PROBABLE POSTERIOR INFARCT : Confirmed by: Elliot Worley 07-Apr-2018 19:15:09
== END 2018-04-06 23:02 | disposition home or self-care (01) ==
LOC: ER 19:57
DX: I48.0 Paroxysmal atrial fibrillation (principal); R00.2 Palpitations; R07.9 Chest pain, unspecified; J45.909 Unspecified asthma, uncomplicated; I10 Essential (primary) hypertension
CPT/HCPCS: 93005; 99285; 96374; 36415; 84439; 84443; 85025; 80048; 84484; 71045; 93010; J3490; A9270

== ENCOUNTER → 2019-03-27 | Outpatient (CLI) | payer MEDICARE, BC ==
--- NOTE | 2019-03-27 16:05 | RADIOLOGY REPORT (SQ) ---
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 Images reviewed with lung, soft tissue and bone windows. Reconstructed coronal and sagittal MPR images reviewed. All images st ored on PACS. All CT scanners at this facility use dose modulation, iterative reconstruction, and/or weight based d osing when appropriate to reduce radiation dose to as low as reasonably achievable (ALARA). [facility]: Dose Right [facility]: CareDose [facility]: Dose Right [facility]: Teradose 4D [facility]: Smart [employer] RADIATION DOSE: CT Rad equipment meets quality standard of care and radiation dose reduction techniq ues were employed. CTDIvol: 18.7 mGy. DLP: 746 mGy-cm. mGy. LIMITATIONS: No technical limitations. FINDINGS: LUNGS AND PLEURA: Stable appearance of the lungs compared to 2011. Bandlike scarring is p resent at both upper lobes, along the minor fissure, and in both lower lobes. There is stable bronch iectasis in the bilateral lower lobe airways. No acute infiltrates. No pleural effusion. No pneumo thorax. No worrisome pulmonary nodules. HILAR AND MEDIASTINAL STRUCTURES: No identified masses or abnormal nodes. No obvious aneurysm. HEART AND VASCULAR STRUCTURES: Ascending aorta 4 cm in diameter, calcified aortic valve. Correlate c linically for aortic stenosis. UPPER ABDOMEN: 2.2 cm nodule along the right mid-pole kidney, worrisome for a small solid renal neopl asm. Follow-up renal ultrasound is recommended. This finding is best shown on axial image 63 and co christiano image 60. THYROID AND OTHER SOFT TISSUES: No masses. No adenopathy. BONES: No significant finding. HARDWARE: None in the chest. OTHER: No other significant findings. IMPRESSION: Stable appearance of the lung parenchyma compared to 2011 Calcified aortic valve with ectasia ascending thoracic aorta. Correlate clinically for significant a ortic stenosis Incidental finding of a 2.2 cm nodule along the right upper pole kidney worrisome for a small solid n eoplasm. Follow-up dedicated renal ultrasound recommended. TECHNICAL DOCUMENTATION: JOB ID: [id number] Quality ID # [id number]: Final reports with documentation of one or more dose reduction techniques (e.g., Au tomated exposure control, adjustment of the mA and/or kV according to patient size, use of iterative reconstruction technique) 2010 [employer]- All Rights Reserved Reading location - IP/workstation name: [email or web address]
== END ==
LOC: RAD 13:39
PROVIDERS: ATTEND Internal Medicine Pulmonary Disease
DX: D86.0 Sarcoidosis of lung (principal)
CPT/HCPCS: 71250

== ENCOUNTER → 2019-04-04 | Outpatient (CLI) | payer MEDICARE, BC ==
--- NOTE | 2019-04-04 12:08 | RADIOLOGY REPORT (SQ) ---
EXAM DESCRIPTION: U/S ABDOMEN COMPLETE W/DOPPLER COMPLETED DATE/TIME: 04/04/2019 11:53 am REASON FOR STUDY: NAUSEA R11.0 NAUSEA COMPARISON: 03/27/2019 CT, ultrasound 09/05/2016 TECHNIQUE: Dynamic and static grayscale images acquired of the abdomen and recorded on PACS. Additio nal selected color Doppler and spectral images recorded. Note: Study does not meet criteria for complete doppler/duplex scan LIMITATIONS: Some structures not visualized. FINDINGS: PANCREAS: Nonvisualized secondary to overlying bowel gas. LIVER: No focal lesions. Increased echogenicity with decreased visualization of the portal triads. LIVER VASCULATURE: Normal directional flow of the main portal vein and hepatic veins. GALLBLADDER: No stones. Normal wall thickness. No pericholecystic fluid. ULTRASOUND-DETECTED HIGGINS'S SIGN: Negative. INTRAHEPATIC DUCTS AND COMMON DUCT: CBD and intrahepatic ducts normal caliber. No filling defects. INFERIOR VENA CAVA: Normal flow. AORTA: No aneurysm. RIGHT KIDNEY: Normal in size measuring 11.7 cm. Normal echogenicity. No solid or suspicious mass es. Lower pole cyst measuring 2.4 cm, stable compared to 2017. No hydronephrosis. No calcificatio ns. LEFT KIDNEY: Normal size measuring 12.7 cm. Normal echogenicity. No solid or suspicious masses. No hydronephrosis. No calcifications. SPLEEN: Normal size measuring 9.5 cm. No solid masses. PERITONEAL AND PLEURAL SPACES: No ascites or effusions. OTHER: No other significant finding. IMPRESSION: Hepatic steatosis. Otherwise, unremarkable abdominal ultrasound as visualized. TECHNICAL DOCUMENTATION: JOB ID: [id number] [employer]- All Rights Reserved Reading location - IP/workstation name: [email or web address]
== END ==
LOC: RAD 10:47
PROVIDERS: ATTEND Internal Medicine Geriatric Medicine
DX: K76.0 Fatty (change of) liver, not elsewhere classified (principal); R11.0 Nausea
CPT/HCPCS: 76700; 93976

== ENCOUNTER → 2019-04-19 | Outpatient (CLI) | payer MEDICARE, BC ==
[2019-04-19 12:29] LABS: ALBUMIN 4.4 g/dL (3.5-5.0); ALKALINE PHOSPHATASE 44 U/L (38-126); ASPARTATE AMINO TRANSFERASE 25 U/L (17-59); BILIRUBIN,DIRECT 0.2 mg/dL (0.0-0.4); BILIRUBIN,TOTAL 0.5 mg/dL (0.2-1.3); TOTAL PROTEIN 7.3 g/dL (6.3-8.2); TRIGLYCERIDES 72 mg/dL (<150)
[2019-04-19 12:40] LABS: DIRECT LDL 134 mg/dL (<100)
[2019-04-19 13:33] LABS: FOLATE 6.93 ng/mL (>2.76)
== END ==
LOC: OD 10:37
PROVIDERS: ATTEND Internal Medicine Geriatric Medicine
DX: K76.0 Fatty (change of) liver, not elsewhere classified (principal); R53.83 Other fatigue; G31.84 Mild cognitive impairment of uncertain or unknown etiology
CPT/HCPCS: 36415; 80061; 80076; 82607; 82728; 82746; 82977; 84443; 86592

== ENCOUNTER 2019-07-01 12:23 | Emergency (ER) | payer MEDICARE, BC ==
[2019-07-01 12:30] VITALS: BP 143/83
--- NOTE | 2019-07-01 12:42 | ER Document Report ---
ED Medical Screen (RME) - General Chief Complaint: Chest Tightness Stated Complaint: CHEST TIGHTNESS Time Seen by Provider: 07/01/19 12:30 Primary Care Provider: CRISTA ORDONEZ MD [Primary Care Provider] - Follow up as needed Mode of Arrival: Ambulatory Information source: Patient Notes: 69-year-old male with history of A. fib DVTs presents emergency department with complaints of chest tightness that makes him feel short of breath, headache that comes and goes and blurred vision that comes and goes. Reports symptoms started yesterday. Denies fever vomiting diarrhea. Offered Tylenol for the headache but reports he does not have a headache at this time. Reports the chest tightness is constant. History of A. fib taking Coumadin. I have greeted and performed a rapid initial assessment of this patient. A comprehensive ED assessment and evaluation of the patient, analysis of test results and completion of the medical decision making process will be conducted by additional ED providers. TRAVEL OUTSIDE OF THE [place] IN LAST 30 DAYS: No - Related Data Allergies/Adverse Reactions: No Known Allergies Allergy (Verified 07/01/19 12:38) Past Medical History - Social History Chew tobacco use (# tins/day): No Frequency of alcohol use: None Drug Abuse: None - Past Medical History Cardiac Medical History: Reports: Hx Atrial Fibrillation, Hx Hypercholesterolemia, Hx Hypertension, Hx Peripheral Vascular Disease Pulmonary Medical History: Reports: Hx Asthma Denies: Hx Tuberculosis Renal/ Medical History: Denies: Hx Peritoneal Dialysis GI Medical History: Reports: Hx Gastroesophageal Reflux Disease Musculoskeltal Medical History: Reports Hx Arthritis Past Surgical History: Reports: Hx Vascular Surgery. Denies: Hx Pacemaker - Immunizations Immunizations up to date: Yes Hx Diphtheria, Pertussis, Tetanus Vaccination: Yes Physical Exam - Vital signs Vitals: Temp Pulse Resp BP Pulse Ox 99.1 F 72 20 143/83 H 96 07/01/19 12:29 07/01/19 12:29 07/01/19 12:07/01/19 12:07/01/19 12:29 Course - Vital Signs Vital signs: Temp Pulse Resp BP Pulse Ox 99.1 F 72 20 143/83 H 96 07/01/19 12:29 07/01/19 12:29 07/01/19 12:29 07/01/19 12:29 07/01/19 12:29 Doctor's Discharge - Discharge Referrals: CRISTA ORDONEZ MD [Primary Care Provider] - Follow up as needed
[2019-07-01 13:08] LABS: ABSOLUTE BASOPHILS # (AUTO) 0.1 10^3/uL (0.0-0.2); ABSOLUTE EOSINOPHILS # (AUTO) 0.1 10^3/uL (0.0-0.6); ABSOLUTE LYMPHOCYTES (AUTO) 2.2 10^3/uL (0.5-4.7); ABSOLUTE MONOCYTES (AUTO) 0.4 10^3/uL (0.1-1.4); ABSOLUTE NEUT (AUTO) 2.6 10^3/uL (1.7-8.2); BASOPHILS % (AUTO) 1.1 % (0-2); EOSINOPHILS % (AUTO) 1.9 % (0-6); HEMOGLOBIN 14.9 g/dL (13.5-17.0); LYMPHOCYTES % (AUTO) 41.5 % (13-45); MEAN CORPUSCULAR HEMOGLOBIN 27.1 pg (27.0-33.4); MEAN CORPUSCULAR VOLUME 82 fl (80-97); MONOCYTES % (AUTO) 7.5 % (3-13); PLATELET COUNT 178 10^3/uL (150-450); RED BLOOD COUNT 5.47 10^6/uL (4.35-5.55); RED CELL DISTRIBUTION WIDTH 16.7 % (11.5-14.0); TOTAL CELLS COUNTED % (AUTO) 100 %; WHITE BLOOD COUNT 5.4 10^3/uL (4.0-10.5)
[2019-07-01 13:27] LABS: ALBUMIN 4.4 g/dL (3.5-5.0); ALKALINE PHOSPHATASE 47 U/L (38-126); ANION GAP 7 (5-19); ASPARTATE AMINO TRANSFERASE 29 U/L (17-59); BILIRUBIN,DIRECT 0.2 mg/dL (0.0-0.4); BILIRUBIN,TOTAL 0.6 mg/dL (0.2-1.3); BLOOD UREA NITROGEN 10 mg/dL (7-20); CALCIUM 9.1 mg/dL (8.4-10.2); CARBON DIOXIDE 31 mmol/L (22-30); CHLORIDE 102 mmol/L (98-107); CREATINE KINASE 180 U/L (55-170); GLUCOSE 84 mg/dL (75-110); POTASSIUM 3.9 mmol/L (3.6-5.0); TOTAL PROTEIN 7.4 g/dL (6.3-8.2)
--- NOTE | 2019-07-01 13:31 | RADIOLOGY REPORT (SQ) ---
EXAM DESCRIPTION: CHEST 2 VIEWS COMPLETED DATE/TIME: 07/01/2019 1:11 pm REASON FOR STUDY: cp COMPARISON: 03/12/2014 EXAM PARAMETERS: NUMBER OF VIEWS: two views TECHNIQUE: Digital Frontal and Lateral radiographic views of the chest acquired. RADIATION DOSE: NA LIMITATIONS: none FINDINGS: LUNGS AND PLEURA: Unchanged linear right mid lung and left lingular opacities, likely scar ring. No new opacities, masses or pneumothorax. No pleural effusion. MEDIASTINUM AND HILAR STRUCTURES: No masses or contour abnormalities. HEART AND VASCULAR STRUCTURES: Heart normal size. No evidence for failure. BONES: No acute findings. HARDWARE: None in the chest. OTHER: No other significant finding. IMPRESSION: No definite acute cardiopulmonary process. Stable right mid lung and left lingular opac ities likely scarring. TECHNICAL DOCUMENTATION: JOB ID: [id number] [employer]- All Rights Reserved Reading location - IP/workstation name: [email or web address]
--- NOTE | 2019-07-01 13:54 | EKG REPORT ---
SEVERITY:- BORDERLINE ECG - SINUS RHYTHM TALL R WAVE IN V2, CONSIDER RVH OR PMI : Confirmed by: Chaz Anderson MD 01-Jul-2019 13:52:31
--- NOTE | 2019-07-01 14:03 | ER Document Report ---
ED General - General Chief Complaint: Chest Pain Stated Complaint: CHEST TIGHTNESS Time Seen by Provider: 07/01/19 12:30 Primary Care Provider: CRISTA ORDONEZ MD [Primary Care Provider] - Follow up as needed Mode of Arrival: Ambulatory TRAVEL OUTSIDE OF THE [place] IN LAST 30 DAYS: No - HPI Notes: Patient is a 69-year-old male who presents to the emergency department for evaluation of headache and chest pain. He states the headache started yesterday . The headache is on the right side of his head, and a very well-circumscribed point on the right parietal scalp. He states that the pain comes on, lasts only 1 to 2 seconds at a time, then completely resolved. He describes some associated blurred vision with it, but again only last 1 or 2 seconds. He denies any relieving or aggravating factors. No recent head injury. He states he is also had some occasional chest tightness. He states that he had an episode that lasted about 30 minutes earlier today. He states that this is not an abnormal symptom for him, he has had this multiple times. He states that he has absolutely no chest pressure or chest pain now. He denies any associated s ymptoms with this chest pressure. - Related Data Allergies/Adverse Reactions: No Known Allergies Allergy (Verified 07/01/19 12:38) Home Medications: Losartan, Coumadin, rosuvastatin, duloxetine, metoprolol Past Medical History - General Information source: Patient - Social History Smoking Status: Never Smoker Chew tobacco use (# tins/day): No Frequency of alcohol use: None Drug Abuse: None Family History: CAD, DM, Hyperlipidemia, Hypertension Patient has suicidal ideation: No Patient has homicidal ideation: No - Past Medical History Cardiac Medical History: Reports: Hx Atrial Fibrillation, Hx DVT, Hx Hypercholesterolemia, Hx Hypertension, Hx Peripheral Vascular Disease Pulmonary Medical History: Reports: Hx Asthma Denies: Hx Tuberculosis Renal/ Medical History: Denies: Hx Peritoneal Dialysis GI Medical History: Reports: Hx Gastroesophageal Reflux Disease Musculoskeletal Medical History: Reports Hx Arthritis Past Surgical History: Reports: Hx Vascular Surgery. Denies: Hx Pacemaker - Immunizations Immunizations up to date: Yes Hx Diphtheria, Pertussis, Tetanus Vaccination: Yes Hx Pneumococcal Vaccination: 04/01/11 Review of Systems - Review of Systems Constitutional: No symptoms reported EENT: No symptoms reported Cardiovascular: See HPI Respiratory: See HPI Gastrointestinal: No symptoms reported Genitourinary: No symptoms reported Musculoskeletal: No symptoms reported Skin: No symptoms reported Neurological/Psychological: See HPI Physical Exam - Vital signs Vitals: Temp Pulse Resp BP Pulse Ox 99.1 F 72 20 143/83 H 96 07/01/19 12:29 07/01/19 12:29 07/01/19 12:29 07/01/19 12:29 07/01/19 12:29 - Notes Notes: This is a very pleasant 69-year-old gentleman who appears his stated age, no acute distress. Vital signs reviewed, please refer to chart. Head is normocephalic, atraumatic. He does have some point tenderness to palpation over the right parietal scalp, overlying the masseter muscle. Pupils equal round, reactive to light. Neck is supple without meningismus. Heart is regular rate and rhythm. Lungs are clear to auscultation bilaterally. Abdomen is soft, nontender, normoactive bowel sounds throughout. Extremities without cyanosis, clubbing. Posterior calves are nontender. Peripheral pulses are equal. Skin is warm and dry. Patient is awake, alert, oriented x3. Cranial nerves II - XII are grossly intact without focal neurological deficits. Strength is plus 5 out of 5 bilateral upper and lower extremities. Sensation is intact. Reflexes symmetrical. Intact [id number], rapid alternating movements, [id number]. Course - Re-evaluation Re-evalutation: 07/01/19 14:05 Patient presents emergency department for evaluation. He had initial laboratory investigations as ordered through triage. The pain in his head is reproducible, I do suspect this is musculoskeletal. Laboratory investigations thus far unremarkable. Patient had a negative stress test last year, I am not overly concerned that this chest pain is secondary to angina/ACS. Awaiting INR and repeat troponin. We will go ahead and add CT scan of the head. Patient remained stable, we will continue to monitor. 07/01/19 17:50 INR therapeutic. Repeat troponin undetectable. Will have patient follow-up with primary care/cardiology. He is to return to the ED with worsening. 07/01/19 17:51 - Vital Signs Vital signs: Temp Pulse Resp BP Pulse Ox 99.1 F 72 20 143/83 H 96 07/01/19 12:29 07/01/19 12:29 07/01/19 12:29 07/01/19 12:29 07/01/19 12:29 - Laboratory Result Diagrams: 07/01/19 12:54 07/01/19 12:54 Laboratory results interpreted by me: 07/01/19 07/01/19 07/01/19 12:54 12:54 12:54 RDW 16.7 H PT 23.3 H Carbon Dioxide 31 H Creatine Kinase 180 H - Diagnostic Test Radiology reviewed: Reports reviewed Radiology results interpreted by me: 07/01/19 16:16 Chest X-Ray 07/01/19 12:41 IMPRESSION: No definite acute cardiopulmonary process. Stable right mid lung and left lingular opacities likely scarring. Head CT 07/01/19 13:58 IMPRESSION: NO ACUTE INTRACRANIAL IMAGING FINDINGS. EVIDENCE OF ACUTE STROKE: NO. - EKG Interpretation by Me Additional EKG results interpreted by me: 07/01/19 14:06 Sinus mechanism with rate of 74 bpm. Normal axis and intervals, no acute ST changes concerning for ischemia or infarction. Discharge - Discharge Clinical Impression: Chest pain Qualifiers: Chest pain type: unspecified Qualified Code(s): R07.9 - Chest pain, unspecified Headache Qualifiers: Intractability: not intractable Condition: Stable Disposition: HOME, SELF-CARE Instructions: Chest Pain of Unclear Cause ([facility]), Headache ([facility]) Additional Instructions: No clear cause was found for your chest pain today. Rest. Follow-up with your primary care doctor and cardiology this week. Continue your home medications as prescribed. Return to the emergency department with worsening or new concerning symptoms of any sort. Referrals: CRISTA ORDONEZ MD [Primary Care Provider] - Follow up as needed
[2019-07-01 14:07] LABS: INTERNATIONAL RATION (INR) 2.03; PROTHROMBIN TIME 23.3 SEC (11.4-15.4)
--- NOTE | 2019-07-01 14:27 | RADIOLOGY REPORT (SQ) ---
EXAM DESCRIPTION: CT HEAD WITHOUT COMPLETED DATE/TIME: 07/01/2019 2:12 pm REASON FOR STUDY: headache, blurred vision COMPARISON: None. TECHNIQUE: Axial images acquired through the brain without intravenous contrast. Images reviewed wi th bone, brain and subdural windows. Additional sagittal and coronal reconstructions were generated. Images stored on PACS. All CT scanners at this facility use dose modulation, iterative reconstruction, and/or weight based d osing when appropriate to reduce radiation dose to as low as reasonably achievable (ALARA). [facility]: Dose Right [facility]: CareDose [facility]: Dose Right [facility]: Teradose 4D [facility]: [employer] RADIATION DOSE: CT Rad equipment meets quality standard of care and radiation dose reduction techniq ues were employed. CTDIvol: 53.2 mGy. DLP: 1017 mGy-cm. mGy. LIMITATIONS: None. FINDINGS: VENTRICLES: Normal size and contour for patient age. CEREBRUM: No masses. No hemorrhage. No midline shift. No evidence for acute infarction. Normal gra y/white matter differentiation. No areas of low density in the white matter. CEREBELLUM: No masses. No hemorrhage. No alteration of density. No evidence for acute infarction. EXTRAAXIAL SPACES: No fluid collections. No masses. Partially empty sella turcica, a nonspecific fi nding. Extra-axial prominence compatible with parenchymal volume loss. ORBITS AND GLOBE: No intra- or extraconal masses. Normal contour of globe without masses. CALVARIUM: No fracture. PARANASAL SINUSES: Mild mucosal thickening in the ethmoid air cells. Remaining sinuses are clear. SOFT TISSUES: No mass or hematoma. OTHER: No other significant finding. IMPRESSION: NO ACUTE INTRACRANIAL IMAGING FINDINGS. EVIDENCE OF ACUTE STROKE: NO. COMMENT: Quality ID # [id number]: Final reports with documentation of one or more dose reduction techniques (e.g., Automated exposure control, adjustment of the mA and/or kV according to patient size, use of iterative reconstruction technique) TECHNICAL DOCUMENTATION: JOB ID: [id number] [employer]- All Rights Reserved Reading location - IP/workstation name: [email or web address]
== END 2019-07-01 18:08 | disposition home or self-care (01) ==
LOC: ER 12:23
DX: R07.9 Chest pain, unspecified (principal); R51 Headache; I48.91 Unspecified atrial fibrillation; E78.00 Pure hypercholesterolemia, unspecified; I10 Essential (primary) hypertension; Z86.718 Personal history of other venous thrombosis and embolism
CPT/HCPCS: 36415; 70450; 71046; 80053; 82550; 84484; 85025; 85610; 93005; 93010; 99285

== ENCOUNTER → 2019-10-24 | Outpatient (CLI) | payer BC, MEDICARE | LOC: OD 11:00 | PROVIDERS: ATTEND Internal Medicine Pulmonary Disease | DX: D86.0 Sarcoidosis of lung (principal) | CPT/HCPCS: 36415; 82164; 82310; 85652 ==

== ENCOUNTER → 2020-03-29 | Outpatient (CLI) | payer MEDICARE ==
--- NOTE | 2020-03-29 09:21 | RADIOLOGY REPORT (SQ) ---
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 TECHNIQUE: CT scan performed of the chest without intravenous contrast. Images reviewed with lung, soft tissue and bone windows. Reconstructed coronal and sagittal MPR images reviewed. All images st ored on PACS. All CT scanners at this facility use dose modulation, iterative reconstruction, and/or weight based d osing when appropriate to reduce radiation dose to as low as reasonably achievable (ALARA). [facility]: Dose Right [facility]: CareDose [facility]: Dose Right [facility]: Teradose 4D [facility]: [employer] RADIATION DOSE: CT Rad equipment meets quality standard of care and radiation dose reduction techniq ues were employed. CTDIvol: 18.7 mGy. DLP: 726 mGy-cm. LIMITATIONS: No technical limitations. FINDINGS: LUNGS AND PLEURA: Un chest range subpleural blebs in the left apex, lower lobe predominant bronchiectasis, calcified nodular opacities in the right lower lobe (image 36 of series 2), and scat tered bilateral peripheral curvilinear opacities that could represent scars. There is no acute conso lidation, ground-glass opacification, pleural effusion or pulmonary nodule. HILAR AND MEDIASTINAL STRUCTURES: Evaluation of the naomi for adenopathy is limited due to the absence of intravenous contrast. There is no mediastinal adenopathy or mass. HEART AND VASCULAR STRUCTURES: Calcification of the aortic valve leaflets. The ascending thoracic ao rta measures 4.1 x 3.8 cm. There is no cardiomegaly or pericardial effusion. UPPER ABDOMEN: Stable hyperdense 2.4 x 2 cm exophytic lesion that projects in the anterior cortex of the upper pole of the right kidney. THYROID AND OTHER SOFT TISSUES: No mass or adenopathy. BONES: No acute findings. HARDWARE: None in the chest. OTHER: No other findings. IMPRESSION: 1. Unchanged appearance of the lung parenchyma. There is no acute cardiopulmonary proce ss. 2. Calcified aortic valve leaflets ; the ascending thoracic aorta measures 4.1 x 3.8 cm. TECHNICAL DOCUMENTATION: JOB ID: [id number] Quality ID # [id number]: Final reports with documentation of one or more dose reduction techniques (e.g., Au tomated exposure control, adjustment of the mA and/or kV according to patient size, use of iterative reconstruction technique) 2010 [employer]- All Rights Reserved Reading location - IP/workstation name: [email or web address]
== END ==
LOC: RAD 08:37
PROVIDERS: ATTEND Internal Medicine Pulmonary Disease
DX: D86.0 Sarcoidosis of lung (principal)
CPT/HCPCS: 71250